=== PATIENT | female | born 1950 | race Caucasian/White ===

== ENCOUNTER → 2023-11-27 08:19 | Outpatient (REF) | payer MEDICARE, OTHER, SELFPAY ==
[2023-11-27 09:47] LABS: % Basophils 1.2 % (0-2); % Eosinophils 3.9 % (0-6); % Immature Granulocytes 0.2 % (0-0.5); % Lymphocytes 38.5 % (20.5-51.1); % Monocytes 9.3 % (1.7-9.3); % Neutrophils 46.9 % (42.2-75.2); Absolute Basophils 0.1 10^3/uL (0-0.2); Absolute Eosinophils 0.2 10^3/uL (0-0.7); Absolute Lymphocytes 1.6 10^3/uL (1.2-3.4); Absolute Monocytes 0.4 10^3/uL (0.1-0.6); Absolute Neutrophils 1.9 10^3/uL (1.4-6.5); Hematocrit 39.5 % (37.0-47.0); Hemoglobin 13.7 g/dL (12.0-16.0); Mean Corp Hgb Conc. 34.7 g/dL (33.0-37.0); Mean Corpuscular Hgb 33.3 pg (27.0-31.0); Mean Corpuscular Volume 95.9 fL (81.0-99.0); Mean Platelet Volume 10.4 fL (7.4-10.4); Nucleated Red Blood Cells % 0 %; Platelet Count 234 10^3/uL (130-400); Red Blood Cell Count 4.12 10^6/uL (4.20-5.40); Red Cell Dist. Width 13.3 % (11.5-14.5); White Blood Cell Count 4.1 10^3/uL (4.8-10.8)
[2023-11-27 10:20] LABS: ALT (SGPT) 19 U/L (0-35); AST (SGOT) 26 U/L (14-36); Alkaline Phosphatase 61 U/L (38-126); Blood Urea Nitrogen 15 mg/dl (7-17); Calcium 9.3 mg/dl (8.4-10.2); Carbon Dioxide 25 mmol/L (22-30); Chloride 107 mmol/L (98-107); D-Dimer 1.79 ug/mlFEU (0.00-0.50); Glucose 87 mg/dl (70-99); HDL Cholesterol 75 mg/dl; LDL Cholesterol, Calculated 116 mg/dl; Potassium 4.1 mmol/L (3.5-5.1); Sodium 136 mmol/L (135-145); Total Bilirubin 0.9 mg/dl (0.2-1.3); Total Cholesterol 209 mg/dl (50-199); Total Protein 6.4 g/dl (6.3-8.2); Triglyceride 94 mg/dl (10-149); Very Low Density Lipoprotein 18 mg/dl (0-30); eGFR > 60.00
== END ==
LOC: REG 08:19
PROVIDERS: ATTENDING PHYSICIAN Internal Medicine Critical Care Medicine; FAMILY PHYSICIAN Emergency Medicine
DX: R06.09 Other forms of dyspnea (principal); I35.1 Nonrheumatic aortic (valve) insufficiency; E66.3 Overweight; E78.2 Mixed hyperlipidemia
CPT/HCPCS: 36415; 80053; 80061; 85025; 85379

== ENCOUNTER 2023-11-27 11:42 | Emergency (ER) | payer MEDICARE, OTHER, SELFPAY ==
[2023-11-27 11:43] VITALS: BMI 25.8
[2023-11-27 11:50] VITALS: BP 155/79
[2023-11-27 12:35] VITALS: BP 149/87
--- NOTE | 2023-11-27 12:35 | ED.GENMED ---
History of Present Illness
<Dwain Arias DO - Last Filed: 11/27/23 12:35>
General
Chief Complaint: Abnormal Lab Value
Time Seen by Provider: 11/27/23 11:56
<Cassie Fermin PA-C - Last Filed: 11/27/23 19:01>
General
Source: patient and family
Exam Limitations: none
Nursing documentation reviewed up to this point in time: agreed with
Travel History
Have you had any contact with someone who has COVID-19?: No
Do you have any symptoms of coronavirus? Fever > 100 degrees, chills, cough, shortness of breath, sore throat, loss of taste or smell, muscle aches, or headache?: No
History of Present Illness
History of Present Illness:
Patient is a 73-year-old female with past medical history of long QT syndrome, migraine disorder presenting emergency department today with acute on chronic shortness of breath. Patient states that she has been having shortness of breath for the
past 2 years, however the past week has been getting worse and more frequent. Patient states that the shortness of breath is brought on upon exertion, however she will get shortness of breath at rest as well. For this issue, patient saw a
tenderizer tender recently for the first time, he has been evaluating her for this issue and ordered a D-dimer. She got a call today reporting that her D-dimer was elevated. Patient denies palpitations, recent illnesses, recent hospitalizations,
abdominal pain, nausea, vomiting, chest pain.
<Cassie Fermin PA-C - Last Filed: 11/27/23 19:01>
Past History
ED Past Medical History: Other
ED Past Surgical History: Gynecological and Other
Social History
Tobacco: Non-smoker
Alcohol: Daily
<Cassie Fermin PA-C - Last Filed: 11/27/23 19:01>
Review of Systems
All Other Systems: ROS reviewed and negative except as documented in HPI and ROS
<Cassie Fermin PA-C - Last Filed: 11/27/23 19:01>
Physical Exam
Physical Exam:
General: Patient is well-appearing in no acute distress
Skin: Skin is warm and dry, no rashes or lesions
Head: Atraumatic, normocephalic
Cardiac: Regular rate and rhythm, no murmurs
Pulm: Normal respiratory effort, no wheezes, rales, or rhonchi
Abdomen: No abdominal tenderness.
Neuro: Patient is awake and alert, cranial nerves II through XII intact
Course
<Dwain Arias DO - Last Filed: 11/27/23 12:35>
Orders/Labs/Results
Orders:
Orders
11/27/23 12:26
Cardiac Monitoring- Treatment ONCE
11/27/23 12:28
CT Chest Pe Study Urgent
Comment:
Reason For Exam: shortness of breath
11/27/23 12:36
Electrocardiogram (*1) Urgent
Reason for Study: Shortness of Breath
EKG- Treatment ONCE
11/27/23 12:36
11/27/23 12:36
Vital Signs
Initial and Last Documented VS:
Initial Vital Signs
Temp Pulse Resp BP Pulse Ox
97.8 F 62 18 155/79 100
11/27/23 11:50 11/27/23 11:50 11/27/23 11:50 11/27/23 11:50 11/27/23 11:50
Last Documented Vital Signs
Temp Pulse Resp BP Pulse Ox
97.8 F 117 10 149/87 100
11/27/23 11:50 11/27/23 12:45 11/27/23 12:45 11/27/23 12:35 11/27/23 11:50
<Cassie Fermin PA-C - Last Filed: 11/27/23 19:01>
Orders/Labs/Results
Orders:
Orders
11/27/23 12:26
Cardiac Monitoring- Treatment ONCE
11/27/23 12:28
CT Chest Pe Study Urgent
Comment:
Reason For Exam: shortness of breath
11/27/23 12:36
Electrocardiogram (*1) Urgent
Reason for Study: Shortness of Breath
EKG- Treatment ONCE
11/27/23 12:36
11/27/23 12:36
Vital Signs
Initial and Last Documented VS:
Initial Vital Signs
Temp Pulse Resp BP Pulse Ox
97.8 F 62 18 155/79 100
11/27/23 11:50 11/27/23 11:50 11/27/23 11:50 11/27/23 11:50 11/27/23 11:50
Last Documented Vital Signs
Temp Pulse Resp BP Pulse Ox
97.8 F 117 10 149/87 100
11/27/23 11:50 11/27/23 12:45 11/27/23 12:45 11/27/23 12:35 11/27/23 11:50
<Cassie Fermin PA-C - Last Filed: 11/27/23 19:01>
MDM/Problems Addressed
Differential Diagnosis Includes:
Differentials include pulmonary embolism, dysrhythmia, long QT syndrome,
Chronic conditions affecting care: Arrhythmia (Prolonged QT syndrome, ICD in place)
Acute Exacerbation and/or Progression of Chronic Illness: Arrhythmia (Prolonged QT syndrome, ICD in place)
<AIDAN Guzman Last Filed: 11/27/23 19:01>
*Pulse Oximetry
Patient hypoxic: no
*Critical Care Note
Total Time (30-74mins, 75-104mins- exclusive of procedures): Not Applicable
Data Reviewed
Review of Other/Old Records Reveals: Records (Reviewed with ER physician documentation from 07/23/2023)
Source: patient and significant other
<Cassie Fermin PA-C - Last Filed: 11/27/23 19:01>
Patient Management
Escalation/DeEscalation of care consider admission/obs:
Patient is a 73-year-old female with past medical history of long QT syndrome, migraine disorder presenting emergency department today with acute on chronic shortness of breath. Patient saw her tenderizer tender to workup this issue who ordered a
D-dimer, he got the test result back today seeing it was elevated, and urgently advised patient to report to the emergency department. On exam, patient is well-appearing, her vitals are stable, and she is not hypoxic or tachycardic. Her CT scan
reveals no evidence of pulmonary embolism, and no significant abnormality in the chest. Patient EKG today is reflective of her known prolonged QT syndrome, patient is on treatment for this and has a ICD in place. Patient will schedule appointment
with either her tenderizer tender primary care provider this week, patient does have a scheduled echo coming up. Patient medically stable for discharge.
ED Attending Note
<Dwain Arias DO - Last Filed: 11/27/23 12:35>
ED Attending Note
Patient seen and examined by attending physician: Yes
I performed the substantive portion of visit, reviewed & personally made and approve the management plan that is documented in note by myself or LANNY.: Yes
ED Attending Note:
Seen with NASIM examined independently 73-year-old female subacute onset of dyspnea at rest also with exertion PCP referred to pulmonary ordered a D-dimer which was elevated sent here for CT scan
<Cassie Fermin PA-C - Last Filed: 11/27/23 19:01>
-
Portions of this chart may have been created with voice recognition software.� Occasional wrong word or��sound alike� substitutions may have occurred due to the inherent limitations of voice recognition software.
Discharge Plan
Departure
Patient Disposition: Home (Routine Discharge)
Date of Disposition: 11/27/23
Time of Disposition: 13:39
Patient with high blood pressure during this ER visit?: Yes
Condition: Good
Discharge Problem:
Chronic shortness of breath
Instructions: D-Dimer Test, Shortness of breath (dyspnea), BLOOD PRESSURE
Prescriptions:
No Action
nadolol 20 MG tablet
10 mg PO DAILY Qty: 30 0RF
ascorbic acid (vitamin C) [Vitamin C] 1,000 MG tablet
1,000 mg PO DAILY
ginkgo biloba extract 60 MG capsule
60 mg PO DAILY
Patient Comments:
11/27/2023, per pt., she ran out a couple of days ago and needs to get more.
Prevagen
10 mg PO DAILY
Rhodiola Rosea
500 mg PO DAILY
coenzyme Q10 [CoQ-10] 100 mg Capsule
100 mg PO DAILY
Centrum Silver Women 8 mg iron-400 mcg-50 mcg Tablet
1 tab PO DAILY
Zepbound 5 mg/0.5 mL Pen Injector
5 mg SC SA@0800
[place] Supplement
1 cap PO DAILY
Patient Comments:
11/27/2023, per pt., she takes this supplement for constipation.
Glucosamine Chondroitin
1 tab PO DAILY
Patient Comments:
11/27/2023, per pt., she ran out and has not taken for at least a week.
cholecalciferol (vitamin D3)
1 tab PO DAILY
Referrals:
UNKNOWN - PT DOES,NOT KNOW [Family Provider] -
Activity Restrictions/Additional Instructions:
Please call your tenderizer tender on Wednesday for a follow up appointment.
Please return to the ER should you experience chest pain, palpitations, dizziness, or other concerning signs or symptoms.
Interventions
Interventions:
*Risk Screen - Suicide Last Done: 11/27/23 12:32
*General Assessment Last Done: 11/27/23 11:50
*Neglect/Abuse Screening Last Done: 11/27/23 12:32
ED- Fall Risk Assessment Last Done: 11/27/23 12:32
*ED COVID-19 Vaccine History Last Done: 11/27/23 11:50
*Nursing Disposition Last Done: 11/27/23 14:02
Discharge Date and Time
Discharge Date/Time: 11/27/23 14:02
== END 2023-11-27 14:02 | disposition home or self-care (01) ==
LOC: EMR 11:42
PROVIDERS: EMERGENCY PHYSICIAN Emergency Medicine
DX: R06.02 Shortness of breath (principal); R03.0 Elevated blood-pressure reading, without diagnosis of hypertension
CPT/HCPCS: 99285; 71275; 93005; Q9967

== ENCOUNTER → 2023-12-18 07:14 | Outpatient (REF) | payer MEDICARE, OTHER, SELFPAY | LOC: RCS 07:14 | PROVIDERS: ATTENDING PHYSICIAN Internal Medicine Critical Care Medicine; FAMILY PHYSICIAN Emergency Medicine | DX: R06.09 Other forms of dyspnea (principal) | CPT/HCPCS: 93306 ==

== ENCOUNTER → 2024-02-21 13:21 | Outpatient (REF) | payer MEDICARE, OTHER, SELFPAY | LOC: HWRAD 13:21 | PROVIDERS: ATTENDING PHYSICIAN Orthopaedic Surgery; FAMILY PHYSICIAN Emergency Medicine | DX: M25.522 Pain in left elbow (principal) | CPT/HCPCS: 73200 ==

== ENCOUNTER → 2024-02-23 06:47 | Outpatient (REF) | payer MEDICARE, OTHER, SELFPAY ==
[2024-02-23 08:58] LABS: Hematocrit 39.7 % (37.0-47.0); Hemoglobin 13.5 g/dL (12.0-16.0); Mean Corpuscular Hgb 33.2 pg (27.0-31.0); Mean Corpuscular Volume 97.5 fL (81.0-99.0); Mean Platelet Volume 10.7 fL (7.4-10.4); Platelet Count 260 10^3/uL (130-400); Red Blood Cell Count 4.07 10^6/uL (4.20-5.40); Red Cell Dist. Width 12.4 % (11.5-14.5); White Blood Cell Count 6.8 10^3/uL (4.8-10.8)
== END ==
LOC: SDSPAT 06:47
PROVIDERS: ATTENDING PHYSICIAN Orthopaedic Surgery; FAMILY PHYSICIAN Emergency Medicine
DX: Z01.818 Encounter for other preprocedural examination (principal)
CPT/HCPCS: 36415; 85027; 93005

== ENCOUNTER 2024-02-25 06:14 | Day surgery (SDC) | payer MEDICARE, OTHER, SELFPAY ==
[2024-02-23 07:05] VITALS: BMI 25.0
--- NOTE | 2024-02-23 13:41 | PTCARENOTE ---
Abn ECG, Dr. Fraire notified, no actions requested.
[2024-02-25] VITALS (8 sets, daily range): BP systolic 106–133; BP diastolic 47–63; BMI 25.0
[2024-02-25] MEDS: CELEBREX 200 MG PO (11:13)
[2024-02-25] MEDS: NORMOSOL-R 1000 IV (11:14)
--- NOTE | 2024-02-25 15:00 | SUR.PHASEI ---
Rec'd sleepy on stretcher, with HOB elevated low fowlers, oriented x 3 by RN, reassured, positioned for comfort, left hand very ecchymotic, denies c/o
--- NOTE | 2024-02-25 15:07 | SUR.PHASEI ---
sleeping SaO2 93% on RA, n/c applied, warm blankets given bernie well
--- NOTE | 2024-02-25 15:23 | SUR.PHASEI ---
More alert, vss
== END 2024-02-25 16:45 | disposition home or self-care (01) ==
LOC: SDS 06:14
PROVIDERS: ATTENDING PHYSICIAN Orthopaedic Surgery
DX: S42.452A Displaced fracture of lateral condyle of left humerus, initial encounter for closed fracture (principal); W01.0XXA Fall on same level from slipping, tripping and stumbling without subsequent striking against object, initial encounter
CPT/HCPCS: 24579; C1713

== ENCOUNTER → 2024-06-02 15:44 | Outpatient (REF) | payer MEDICARE, OTHER, SELFPAY | LOC: WDC 15:44 | PROVIDERS: ATTENDING PHYSICIAN Obstetrics & Gynecology; FAMILY PHYSICIAN Emergency Medicine | DX: Z12.31 Encounter for screening mammogram for malignant neoplasm of breast (principal) | CPT/HCPCS: 77063; 77067 ==

== ENCOUNTER → 2024-08-31 13:41 | Outpatient (REF) | payer MEDICARE, OTHER, SELFPAY | LOC: RAD 13:41 | PROVIDERS: ATTENDING PHYSICIAN Emergency Medicine | DX: N95.1 Menopausal and female climacteric states (principal); M85.89 Other specified disorders of bone density and structure, multiple sites | CPT/HCPCS: 77080 ==

== ENCOUNTER → 2024-12-01 16:25 | Outpatient (REF) | payer MEDICARE, OTHER, SELFPAY ==
[2024-12-01 18:09] LABS: % Eosinophils 3.5 % (0-6); % Immature Granulocytes 0.2 % (0-0.5); % Lymphocytes 38.1 % (20.5-51.1); % Monocytes 10.7 % (1.7-9.3); % Neutrophils 46.5 % (42.2-75.2); ALT (SGPT) 15 U/L (0-35); AST (SGOT) 23 U/L (14-36); Absolute Basophils 0.1 10^3/uL (0-0.2); Absolute Eosinophils 0.2 10^3/uL (0-0.7); Absolute Lymphocytes 2.3 10^3/uL (1.2-3.4); Absolute Monocytes 0.6 10^3/uL (0.1-0.6); Absolute Neutrophils 2.8 10^3/uL (1.4-6.5); Albumin 4.7 g/dl (3.5-5.0); Alkaline Phosphatase 73 U/L (38-126); Blood Urea Nitrogen 20 mg/dl (7-17); Calcium 10.2 mg/dl (8.4-10.2); Carbon Dioxide 28 mmol/L (22-30); Chloride 102 mmol/L (98-107); Glucose 76 mg/dl (70-99); Hemoglobin 14.9 g/dL (12.0-16.0); Mean Corp Hgb Conc. 35.5 g/dL (33.0-37.0); Mean Corpuscular Hgb 34.2 pg (27.0-31.0); Mean Corpuscular Volume 96.3 fL (81.0-99.0); Mean Platelet Volume 10.6 fL (7.4-10.4); Nucleated Red Blood Cells % 0 %; Platelet Count 226 10^3/uL (130-400); Potassium 4.6 mmol/L (3.5-5.1); Red Blood Cell Count 4.36 10^6/uL (4.20-5.40); Red Cell Dist. Width 11.9 % (11.5-14.5); Sodium 136 mmol/L (135-145); Total Bilirubin 0.7 mg/dl (0.2-1.3); eGFR > 60.00
[2024-12-01 18:25] LABS: Vitamin D, 25-OH*** 123 ng/mL (30-80)
[2024-12-01 18:38] LABS: TSH 1.94 uIU/ml (0.47-4.68)
[2024-12-02 13:13] LABS: Intact PTH 44.7 pg/ml (13.6-85.8)
== END ==
LOC: REG 16:25
PROVIDERS: ATTENDING PHYSICIAN Physician Assistant; FAMILY PHYSICIAN Emergency Medicine
DX: E03.9 Hypothyroidism, unspecified (principal); E20.9 Hypoparathyroidism, unspecified; E55.9 Vitamin D deficiency, unspecified; M81.0 Age-related osteoporosis without current pathological fracture
CPT/HCPCS: 36415; 80053; 82306; 83970; 84443; 85025

== ENCOUNTER → 2025-04-07 08:52 | Outpatient (REF) | payer MEDICARE, OTHER, SELFPAY | LOC: RAD 08:52 | PROVIDERS: ATTENDING PHYSICIAN Orthopaedic Surgery; FAMILY PHYSICIAN Emergency Medicine | DX: S42.452D Displaced fracture of lateral condyle of left humerus, subsequent encounter for fracture with routine healing (principal) | CPT/HCPCS: 73200 ==

== ENCOUNTER → 2025-04-11 08:40 | Outpatient (REF) | payer MEDICARE, OTHER, SELFPAY | LOC: EMG 08:40 | PROVIDERS: ATTENDING PHYSICIAN Orthopaedic Surgery; FAMILY PHYSICIAN Emergency Medicine | DX: R20.0 Anesthesia of skin (principal) | CPT/HCPCS: 95886; 95909 ==

== ENCOUNTER → 2025-06-25 13:36 | Outpatient (REF) | payer MEDICARE, OTHER, SELFPAY | LOC: MRI 13:36 | PROVIDERS: ATTENDING PHYSICIAN Orthopaedic Surgery; FAMILY PHYSICIAN Emergency Medicine | DX: M54.12 Radiculopathy, cervical region (principal) | CPT/HCPCS: 72141 ==